=== PATIENT | female | born 1975 | race Caucasian/White ===

== ENCOUNTER 2017-02-21 07:23 | Inpatient (IN) ==
[2017-02-16 14:35] LABS: Basophils # (Auto) 0 K/mcL (0.0-0.3); Basophils % (Auto) 0.5 % (0.0-2.0); Eosinophils # (Auto) 0.1 K/mcL (0.0-0.7); Eosinophils % (Auto) 1.3 % (0.0-7.0); Granulocytes % (Auto) 51.4 % (38.0-78.0); Lymphocytes # (Auto) 2.8 K/mcL (1.5-4.8); Lymphocytes % (Auto) 37.9 % (15.5-49.0); Mean Cell Volume 89.8 fL (80.0-100.0); Mean Corpuscular HGB Conc 33.6 g/dL (31.0-36.0); Mean Corpuscular Hemoglobin 30.2 pg (26.0-34.0); Monocytes # (Auto) 0.7 K/mcL (0.1-0.9); Monocytes % (Auto) 8.9 % (1.0-12.0); Platelet Count 265 K/mcL (140-440); RBC 3.95 M/mcL (4.00-5.20); Red Cell Distribution Width 13.8 % (11.5-14.5)
[2017-02-16 14:51] LABS: Blood Urea Nitrogen 9 mg/dl (6-20)
[2017-02-16 14:55] LABS: Appearance,Urine CLEAR; Bilirubin,Urine NEG (NEG); Color,Urine STRAW; Glucose,Urine (UA) NEGATIVE (NEG); Leukocyte Esterase,Urine NEG /uL (NEG); Nitrate,Urine NEG (NEG); Protein,Urine NEG (NEG); Specific Gravity,Urine 1.008 (1.000-1.035); Urine Blood NEG mg/dL (<0.03); Urobilinogen,Urine NEG (NEG)
[~2017-02-21 07:23] MED LIST: CELECOXIB 200 MG CAPSULE PO SCH; KETOROLAC 30 MG, ROPIVACAINE HCL/PF 49.5 ML, EPINEPHrine 0.5 MG, 0.9 % SODIUM CHLORIDE ... IJ SCH; PREGABALIN 150 MG CAPSULE PO SCH; ceFAZolin 1 GM VIAL IV SCH; oxyCODONE 10 MG TAB.ER.12H PO SCH
[2017-02-21] MEDS ORDERED: PROPOFOL 200 MG/20 ML VIAL IV ONE (09:25)
[2017-02-21] MEDS ORDERED: TRANEXAMIC ACID 1,000 MG/10 ML VIAL IV ONE ×2 (09:25→11:24)
[2017-02-21] MEDS ORDERED: ONDANSETRON 4 MG/2 ML VIAL IV ONE (09:25)
[2017-02-21] MEDS ORDERED: ROPIVACAINE HCL/PF 30 ML VIAL IJ ONE (09:25)
[2017-02-21] MEDS ORDERED: LIDOCAINE HCL/PF 100 MG/5 ML SYRINGE IV ONE (09:25)
[2017-02-21] MEDS ORDERED: GLYCOPYRROLATE 0.2 MG/ML VIAL IV ONE (09:25)
[2017-02-21] MEDS ORDERED: MIDAZOLAM 5 MG/5 ML VIAL IV ONE (09:25)
[2017-02-21] MEDS ORDERED: KETAMINE 100 MG/ML ML IV ONE (09:25)
[2017-02-21] MEDS ORDERED: BENZOCAINE/MENTHOL 1 LOZENGE PO PRN ×2 (10:43→11:24)
[2017-02-21] MEDS ORDERED: ONDANSETRON 4 MG/2 ML VIAL IV PRN (10:43)
[2017-02-21] MEDS ORDERED: IPRATROPIUM/ALBUTEROL 3 ML AMPUL.NEB NEB PRN (10:43)
[2017-02-21] MEDS ORDERED: METOPROLOL TARTRATE 5 MG/5 ML VIAL IV PRN (10:43)
[2017-02-21] MEDS ORDERED: METHOCARBAMOL 1,000 MG/10 ML VIAL IV PRN (10:43)
[2017-02-21] MEDS ORDERED: MEPERIDINE 25 MG/ML SYRINGE IV PRN (10:43)
[2017-02-21] MEDS ORDERED: LACTATED RINGERS 1,000 ML IV SCH (10:45)
[2017-02-21] MEDS ORDERED: KETOROLAC 30 MG/ML VIAL IV PRN (10:48)
[2017-02-21] MEDS ORDERED: ACETAMINOPHEN 1,000 MG/100 ML BOTTLE IV PRN (11:15)
--- NOTE | 2017-02-21 11:22 | Brief Operative Note ---
Date of procedure: 02/21/17 Pre-op diagnosis: Left knee DJD Post-op diagnosis: same Procedure: Left robotic assisted total knee arthroplasty Grafts/Implants: Yes (Christa Triathlon CR 4 femur, 4 tibia, 9mm insert, 33 patella) Anesthesia: spinal, GLMA Findings: arthritis Complications: none Surgeon: Jaron Meraz Precision Grinder External: Rufus Hart Estimated blood loss (cc): 30 Specimens Removed/Pathology: none sent Condition: stable Disposition: PACU
[2017-02-21] MEDS ORDERED: POLYETHYLENE GLYCOL 3350 17 GM PACKET PO PRN (11:24)
[2017-02-21] MEDS ORDERED: FLEETS ADULT ENEMA PR PRN (11:24)
[2017-02-21] MEDS ORDERED: BISACODYL 10 MG SUPP.RECT PR PRN (11:24)
[2017-02-21] MEDS ORDERED: MAGNESIUM HYDROXIDE 30 ML ORAL.SUSP PO PRN (11:24)
[2017-02-21] MEDS ORDERED: FLUTICASONE PROPIONATE SPRAY.NAS NS PRN (11:29)
[2017-02-21] MEDS ORDERED: ALBUTEROL SULFATE 1 PUFF INHALER INH PRN (11:29)
[2017-02-21] MEDS ORDERED: OXYMETAZOLINE 1 SPRAY BOTTLE NAS SCH (11:30)
[2017-02-21] MEDS: fentaNYL 100 MCG/2 ML VIAL IV PRN ×4 (12:02→12:11)
[2017-02-21] MEDS: HYDROmorphone 2 MG/ML SYRINGE IV PRN ×8 (12:16→21:02)
[2017-02-21] MEDS ORDERED: PROMETHAZINE 50 MG/ML AMPUL IM ONE (12:34)
[2017-02-21] MEDS ORDERED: MEPERIDINE 50 MG/ML SYRINGE IM ONE (12:34)
--- NOTE | 2017-02-21 12:53 | XRay Report ---
HISTORY: Reason for Exam:Post-op total knee FINDINGS: There is a well positioned total knee prosthesis. No fracture is present and there are no abnormal soft tissue calcifications around the joint. IMPRESSION: Well-positioned left knee prosthesis Interpreted and Authenticated by: Tono Francois 02/21/17
[2017-02-21] MEDS ORDERED: DIAZEPAM 10 MG/2 ML SYRINGE IV PRN (12:55)
--- NOTE | 2017-02-21 13:26 | Operative Note ---
DATE OF OPERATION: 02/21/2017 PREOPERATIVE DIAGNOSIS: Left knee advanced osteoarthritis. POSTOPERATIVE DIAGNOSIS: Left knee advanced osteoarthritis. PROCEDURE PERFORMED: Left total knee arthroplasty robotic assisted, placing a Christa Triathlon cruciate retaining size 4 femoral component, size 4 tibial baseplate, a 9 mm X3 tibial insert with a 33 mm patellar button. SURGEON: Jaron Meraz MD. BURR PICKER: Severo Hart PA-C. ANESTHESIA: Spinal plus general. DRAINS: None. SPECIMENS: Bone cuts, which were discarded. BLOOD LOSS: 30 mL. COMPLICATIONS: None. POSTOPERATIVE CONDITION: Stable. INDICATIONS FOR SURGERY: This is a 41-year-old female who has worsening left knee pain. I believe she has already had a prior arthroscopy. Her x-rays showed advanced degenerative changes. MRI did not show significant meniscal pathology and just showed the arthrosis. FINDINGS AT SURGERY: She did have medial compartment arthrosis with osteophytes on the medial and lateral compartments. Post-procedure showed satisfactory limb alignment, patellar tracking, and joint stability. PROCEDURE IN DETAIL: The patient had been seen preoperatively and informed consent had been obtained after discussion of risks and benefits of surgery. Risks including, but not limited to, bleeding, possibly requiring transfusion; infection, possibly requiring implant removal and prolonged IV antibiotics; injury to nerves, blood vessels, and other surrounding structures; anesthetic risks; incomplete or no resolution of symptoms; instability; stiffness; pain; swelling; clunking; DVT and pulmonary embolus risks; and high probability of needing revision surgery in the future given her young age. She understood these risks and wished to proceed. Correct operative site was marked and then patient was taken to the operating room and spinal anesthesia was given. LMA general was done and then the left lower extremity was carefully prepped and draped in normal sterile fashion, and a time-out was performed verifying patient name, operative site, and plan. Esmarch was used to exsanguinate the extremity and tourniquet was inflated. A midline incision was made with a scalpel through skin and subcutaneous tissue. Irrisept was irrigated and then a medial parapatellar arthrotomy performed. Subperiosteal exposure was done of the anterior medial tibia and the distal anterior cortex of the femur. Retropatellar fat pad was excised, as well as anterior horns of the menisci. We then made two stab incisions over the femur and two over the tibia, and drilled and placed bicortical pins and then connected the arrays. Femoral and tibial check points were placed. We then did our hip center of rotation, followed by the medial and lateral malleoli checks. We then did our double-checks of the femur and tibia checkpoints. The blue probe was then used to do our mapping and then a rongeur was used to remove osteophytes. The spoons were then used to check our flexion and extension gaps medially and laterally. We ended up placing 2 degrees of varus in the tibia and 1 degree in the femur and shifting our femur posteriorly 1 mm to get a 17 mm flexion and extension gap. Once we had balance, we confirmed this then with the robot and after doing our double-checks with the probe, we did our saw cuts of the femur and tibia. The tibia rotation easton were made and then a tibial trial was pinned into place without rotation and then boss reamer and keel punch used to prepare. The keel tibial trial was placed. The femur was elevated. Posterior osteophytes were removed with a curved osteotome and curet and then a femoral trial was impacted. This was pinned and peg holes drilled. We then trialed a 9 insert which was snug. Knee was taken into extension. It measured about 1 to 3 degrees of residual flexion contracture. The patella was measured at a 23. We resected freehand 9 mm and sized this to a 33 patellar trial which was medialized maximally. Holes were drilled and then a minimal lateral facetectomy was performed. We checked our patellar tracking which was good, so we went ahead and removed trial implants. Definitive implants were opened. We irrigated the joint with Irrisept. After waiting a minute we pulse lavaged copiously with saline. A CO2 gun was used to clean and dry the cut bone surfaces and then antibiotic Palacos was used to cement the tibia followed by the femur. A 9 trial insert was placed. The knee was taken into extension. Excess cement removed. The patellar button was cemented and then we filled the joint with Irrisept. We then injected pain cocktail into the pericapsular and subcutaneous tissues, and after waiting we then pulse lavaged copiously with saline. Once the cement had fully hardened, we flexed the knee up, removed the trial insert. The remainder of the pain cocktail was injected in the posterior capsules. A 9 insert was opened. Irrisept was irrigated and then the insert was impacted. The joint was filled Irrisept. Again, after a minute we then pulse lavaged copiously with saline. The knee was then placed in about 45 degrees of flexion, and a #2 FiberWire [id number]-wwzsi was used around the patella superior quadrant, a #1 Vicryl funprh-yw-bzijv around the inferior quadrant. Running #1 Vicryl was used for patellar tendon and quad tendon. The Irrisept was irrigated again, and then 2-0 Monocryl for subcutaneous and julianne for skin. We did remove the checkpoints prior to closure. The pins were also removed and these were irrigated with Irrisept and then julianne were used for closure. Xeroform and sterile dressing were applied. Tourniquet was released, and the patient was awakened, extubated, and transferred to recovery in stable condition. BJJennifer:luis Job ID: [id number] Doc ID: [id number] Jaron Meraz MD
[2017-02-21] MEDS: ONDANSETRON 4 MG/2 ML VIAL IV PRN ×2 (14:13→21:02)
[2017-02-21] MEDS: 0.9 % SODIUM CHLORIDE 10 ML SYRINGE IV SCH ×2 (14:15→20:01)
[2017-02-21] MEDS: METHOCARBAMOL 750 MG TABLET PO SCH ×2 (14:29→20:00)
[2017-02-21] MEDS: 0.9 % SODIUM CHLORIDE 1,000 ML IV SCH ×2 (14:30→20:01)
[2017-02-21] MEDS: HYDROcodone/APAP 10/325MG TABLET PO PRN ×3 (14:30→23:40)
[2017-02-21] MEDS: KETOROLAC 30 MG/ML VIAL IV SCH ×3 (14:30→23:41)
[2017-02-21] MEDS: ceFAZolin 1 GM VIAL IV SCH (17:31)
[2017-02-21] MEDS: PREGABALIN 75 MG CAPSULE PO SCH (19:59)
[2017-02-21] MEDS: ASPIRIN 325 MG ENTERIC COATED TABLET PO SCH (20:00)
[2017-02-21] MEDS: DOCUSATE SODIUM 100 MG CAPSULE PO SCH (20:00)
[2017-02-21] MEDS ORDERED: SENNOSIDES 1 TABLET PO SCH (21:00)
[2017-02-21] MEDS ORDERED: QUEtiapine 100 MG TABLET PO SCH (21:00)
[2017-02-21] MEDS ORDERED: PRAZOSIN 1 MG CAPSULE PO SCH (21:00)
[2017-02-21] MEDS ORDERED: lamoTRIgine 100 MG TABLET PO SCH (21:00)
[2017-02-22] MEDS: HYDROmorphone 2 MG/ML SYRINGE IV PRN ×4 (00:41→10:21)
[2017-02-22] MEDS: ceFAZolin 1 GM VIAL IV SCH (00:41)
[2017-02-22] MEDS: HYDROcodone/APAP 10/325MG TABLET PO PRN ×3 (03:37→12:29)
[2017-02-22] MEDS: 0.9 % SODIUM CHLORIDE 1,000 ML IV SCH ×2 (03:38→17:05)
[2017-02-22] MEDS: 0.9 % SODIUM CHLORIDE 10 ML SYRINGE IV SCH ×2 (05:18→17:06)
[2017-02-22] MEDS: KETOROLAC 30 MG/ML VIAL IV SCH ×2 (05:18→12:29)
[2017-02-22] MEDS ORDERED: LEVOTHYROXINE 25 MCG TABLET PO SCH (07:30)
--- NOTE | 2017-02-22 07:51 | Discharge Summary ---
Providers - Providers Patient information: Note initiated : 02/22/17 at 7:49 am Service Date, if different from initiated Date: [] Patient: Yudy Baxter 41 y/o F admitted on 02/21/17 for Left Total Knee Arthroplasty with Bam Robot. Chief Complaint: [] Discharge date: 02/22/17 Hospitalization Hospital course: Pt was admitted for a L total knee arthroplasty. She underwent the procedure day of admission. She was dischraged on post-op day one with appropriate pain meds and out-patient PT orders. She will f/u at [facility] in 10-14 days. She was given ASA for DVT prophylaxis. Discharge diagnosis: L knee osetoarthrosis Exam - Exam Clean and dry: Yes Weight bearing status: as tolerated Ortho Discharge - TKA - Patient Instructions Diet: Regular Diet Activity: activity as tolerated Total Knee Protocol: For Total Knee: Start ROM STEVIE with stationary bike or rocking chair. Work on gaining full extension of knee. Posterior dislocation precautions provided. Hip abductor strengthening and gait training instructions provided. Apply Cryocuff as instructed. Dressing Care: May shower in 2 days Patient Education: Total Knee Replacement (DC) Additional Instructions: Discharge Instructions: Do the exercises at home that physical therapy gave you. You are scheduled to start physical therapy at [facility] ([phone]) on Feb. Take your prescription, photo ID, insurance cards, and current medication list with you to your first physical therapy appointment. Take your prescription to pick remover any medication or equipment (such as walker, crutches, toilet riser or C.P.M.) Wear comfortable clothing for your physical therapy. Weight bearing as tolerated. You have the Aquacel Ag dressing, leave in place for 7 days then remove. If dressing becomes soiled (turns black), remove and use gauze 4x4 dressing and silvasorb ointment and change daily. Keep incision clean and dry. You may start showering on post op day #2. To avoid constipation while taking any narcotic pain medication, take an over the counter stool softener/laxative. Use your Cryocuff or ice packs as directed, on for 20 minutes at a time throughout the day. This and elevation will help with pain and swelling. Call your physician for fevers above 100.5 or pain not controlled by medication. Your prescriptions are with your discharge information. Some medications were electronically transmitted to your pharmacy of choice. - Follow Up Plan Follow Up Appointments: Jaron Meraz MD [Physician] - 03/08/17 1:40 pm Rufus Hart PA-C [Physician Auto Body Detailer] - Disposition: Home, Self-Care Prognosis: Good Rehab Potential: Good Overall status at discharge: patient is progressing back to baseline - Orders For Discharge Prescriptions: Aspirin [Ecotrin] 325 mg PO BID #30 tab.ec HYDROcodone/APAP 10/325MG [[place] 10/325Mg] 1 - 2 tab PO Q4HP PRN #100 tab PRN Reason: Pain Pending Studies Resuscitation Status Full Code Diet Regular Diet Start SunFeb 21 Dinner Hydrocodone Bitart/Acetaminophen ([place] 10/325mg) 0 tab PO Q4HP PRN PRN Reason: Pain Last Admin: 02/22/17 03:37 Dose: 2 tab Admin: 02/21/17 23:40 Dose: 2 tab Admin: 02/21/17 19:11 Dose: 2 tab Admin: 02/21/17 14:30 Dose: 2 tab Aspirin (Ecotrin) 325 mg PO BID [facility] Last Admin: 02/21/17 20:00 Dose: 325 mg Docusate Sodium (Colace) 100 mg PO BID [facility] Last Admin: 02/21/17 20:00 Dose: 100 mg Hydromorphone HCl (Dilaudid) 0 mg IV Q2HP PRN PRN Reason: Pain Last Admin: 02/22/17 04:32 Dose: 1 mg Admin: 02/22/17 00:41 Dose: 0.5 mg Admin: 02/21/17 21:02 Dose: 0.5 mg Admin: 02/21/17 16:40 Dose: 1 mg Admin: 02/21/17 13:43 Dose: 2 mg Sodium Chloride (Sodium Chloride 0.9%) 1,000 mls @ 125 mls/hr IV .Q8H [facility] Last Admin: 02/22/17 03:38 Dose: Admin: 02/21/17 20:01 Dose: Not Given Admin: 02/21/17 14:30 Dose: 125 mls/hr Ketorolac Tromethamine (Toradol) 30 mg IV Q6 [facility] Stop: 02/23/17 06:01 Last Admin: 02/22/17 05:18 Dose: 30 mg Admin: 02/21/17 23:41 Dose: 30 mg Admin: 02/21/17 16:40 Dose: 30 mg Admin: 02/21/17 14:30 Dose: 30 mg Lamotrigine (Lamictal) 100 mg PO HS [facility] Last Admin: 02/21/17 20:00 Dose: 100 mg Methocarbamol (Robaxin) 750 mg PO TID [facility] Last Admin: 02/21/17 20:00 Dose: 750 mg Admin: 02/21/17 14:29 Dose: 750 mg Ondansetron HCl (Zofran) 4 mg IV Q4HP PRN PRN Reason: Nausea And Vomiting Last Admin: 02/21/17 21:02 Dose: 4 mg Admin: 02/21/17 14:13 Dose: 4 mg Prazosin HCl (Minipress) 2 mg PO [facility] Last Admin: 02/21/17 20:00 Dose: 2 mg Pregabalin (Lyrica) 150 mg PO BID [facility] Last Admin: 02/21/17 19:59 Dose: 150 mg Quetiapine Fumarate (Seroquel) 100 mg PO [facility] Last Admin: 02/21/17 20:00 Dose: 100 mg Senna (Senokot) 2 tab PO [facility] Last Admin: 02/21/17 20:00 Dose: 2 tab Sodium Chloride (Saline Flush) 10 ml IV Q8 [facility] Last Admin: 02/22/17 05:18 Dose: 10 ml Admin: 02/21/17 20:01 Dose: Not Given Admin: 02/21/17 14:15 Dose: Not Given Shift Summary 02/22/17 03:48 Shift Summary by Chen Keene&Ox4. VSS. Dressing to left knee CDI. Foot pumps in place and periodically using Cryo-cuff. 18 gauge to LFA that is now saline locked. Patient is up with FWW and SBA to bathroom. Pain continues to be an issue for the patient. Received scheduled Toradol, Robaxin, and Lyrica as well as PRN [place] and Dilaudid IV. Patient received 2 tablets [place] 10/325mg x3 and 0.5mg Dilaudid IV x2. Will update at bedside. Initialized on 02/22/17 03:48 - END OF NOTE
[2017-02-22] MEDS: DOCUSATE SODIUM 100 MG CAPSULE PO SCH (07:58)
[2017-02-22] MEDS: METHOCARBAMOL 750 MG TABLET PO SCH ×2 (07:58→17:06)
[2017-02-22] MEDS: ASPIRIN 325 MG ENTERIC COATED TABLET PO SCH (07:59)
[2017-02-22] MEDS: PREGABALIN 75 MG CAPSULE PO SCH (07:59)
[2017-02-22] MEDS ORDERED: QUEtiapine 25 MG TABLET PO SCH (09:00)
[2017-02-22] MEDS ORDERED: lamoTRIgine 100 MG TABLET PO SCH (09:00)
[2017-02-24] MEDS ORDERED: ERGOCALCIFEROL (VITAMIN D2) 50,000 UNIT CAPSULE PO SCH (09:00)
== END 2017-02-22 15:20 | disposition home or self-care (01) | DRG 470 ==
LOC: MEDSUR 07:23
PROVIDERS: ADMIT Orthopaedic Surgery; ATTEND Orthopaedic Surgery